=== PATIENT | female | born 1945 | race Caucasian/White ===

== ENCOUNTER 2017-01-28 15:22 | Emergency (ER) | payer MEDICARE ==
[2017-01-28] MEDS ORDERED: HYDROcod/ACETAM 5/325 MG TABLET PO STA (15:56)
[2017-01-28] MEDS ORDERED: HYDROcod/ACETAM 5/325 MG TABLET ONE (16:24)
== END 2017-01-28 17:46 | disposition home or self-care (01) ==
DX: S32.10XA Unspecified fracture of sacrum, initial encounter for closed fracture (principal); W01.10XA Fall on same level from slipping, tripping and stumbling with subsequent striking against unspecified object, initial encounter; I10 Essential (primary) hypertension; J45.909 Unspecified asthma, uncomplicated; E11.9 Type 2 diabetes mellitus without complications; E03.9 Hypothyroidism, unspecified; Z79.82 Long term (current) use of aspirin

== ENCOUNTER 2018-01-08 12:28 | Emergency (ER) | payer MEDICARE ==
[2018-01-08] MEDS ORDERED: HYDROcod/ACETAM 5/325 MG TABLET PO STA (12:48)
--- NOTE | 2018-01-08 12:52 | ED Physician Documentation ---
History of Present Illness - Stated complaint Stated Complaint: LEFT RIB PX/GLF - Chief complaint Chief Complaint: General - History obtained from History obtained from: Patient, Family () - History of Present Illness Timing: Other (3 days ago she had a trip and fall at home hitting her left lateral low chest wall on the edge of the counter and has persistent pain there. She is not more short of breath than normal. 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 denies: Palpitations Respiratory: denies: Dyspnea, Cough GI: denies: Abdominal Pain PD PAST MEDICAL HISTORY - Past Medical History Past Medical History: Yes Cardiovascular: Hypertension Respiratory: Asthma Endocrine/Autoimmune: Type 2 diabetes, HyPOthyroidism : None - Past Surgical History Past Surgical History: Yes - Present Medications Home Medications: Ambulatory Orders Medication Instructions Recorded Confirmed Albuterol Sulfate [Proair 03/01/16 Respiclick] Aspirin [Aspir-Low] 03/01/16 Azithromycin 250 mg PO DAILY 03/01/16 01/28/17 Ferrous Sulfate [Iron Supplement] 03/01/16 Fluticasone [Flonase] 03/01/16 Levothyroxine Sodium 75 mcg PO DAILY 03/01/16 01/28/17 Metoprolol Tartrate 100 mg PO BID 03/01/16 01/28/17 Multivitamin [Multivitamins] 03/01/16 Simvastatin 20 mg PO DAILY 03/01/16 01/28/17 Sulfamethoxazole/Trimethoprim 1 tab PO DAILY 03/01/16 01/28/17 [Bactrim Ds Tablet] Tacrolimus 3 mg PO BID 03/01/16 01/28/17 Trazodone HCl 03/01/16 Venlafaxine HCl [Venlafaxine HCl 150 mg PO DAILY 03/01/16 01/28/17 ER] predniSONE [Deltasone] 5 mg PO DAILY 03/01/16 01/28/17 amLODIPine [Norvasc] 01/28/17 HYDROcod/ACETAM 5/325 [Omena 5/325] 1 - 2 ea PO Q6H PRN #20 tablet 01/08/18 Rivastigmine [Exelon] 1.5 mg PO BID 01/08/18 01/08/18 Venlafaxine ER [Effexor ER] 37.5 mg PO DAILY 01/08/18 01/08/18 - Allergies Allergies/Adverse Reactions: Allergies Allergy/AdvReac Type Severity Reaction Status Date / Time No Known Drug Allergies Allergy Verified 01/08/18 12:38 - Social History Does the pt smoke?: No Smoking Status: Never smoker - Immunizations Immunizations are current?: Yes PD ED PE NORMAL - Vitals Vital signs reviewed: Yes - General General: Alert and oriented X 3, No acute distress - Neck Neck: Supple, no meningeal sign, No bony TTP - Cardiac Cardiac: RRR, No murmur - Respiratory Respiratory: No respiratory distress, Clear bilaterally, Other (She is focally tender over about rib 10 or 11 left side, mid axillary line. There is no abdominal or left upper quadrant tenderness.) - Back Back: No spinal TTP - Neuro Neuro: Alert and oriented X 3, Normal speech - Psych Psych: Normal mood, Normal affect Results - Vitals Vitals: Vital Signs - 24 hr 01/08/18 12:35 Temperature 36.4 C L Heart Rate 89 Respiratory 18 Rate Blood Pressure 127/68 O2 Saturation 100 Oxygen O2 Source Room air - Rads (name of study) L ribs Radiology: EMP read contemporaneously (1. No definite rib fracture or acute osseous abnormality. 2. Postoperative changes. 3. Mild bilateral costophrenic angle blunting. 4. Mild focal nodularity at the left lung base. Comparison with prior exams is recommended to confirm stability) Departure - Departure Disposition: 01 Home, Self Care Clinical Impression: H/O immunosuppressive therapy Fall from slip, trip, or stumble Qualifiers: Encounter type: initial encounter Qualified Code(s): W01.0XXA - Fall on same level from slipping, tripping and stumbling without subsequent striking against object, initial encounter Contusion of left chest wall Qualifiers: Encounter type: initial encounter Qualified Code(s): S20.212A - Contusion of left front wall of thorax, initial encounter Condition: Good Record reviewed to determine appropriate education?: Yes Instructions: ED Contusion Rib Prescriptions: HYDROcod/ACETAM 5/325 [Omena 5/325] 1 - 2 ea PO Q6H PRN #20 tablet PRN Reason: Pain Comments: Use her incentive spirometer frequently as discussed. Return if worse or if new symptoms develop. Follow-up with your doctor with the copy of your x-rays on CD. The x-ray read was as followed: 1. No definite rib fracture or acute osseous abnormality. 2. Postoperative changes. 3. Mild bilateral costophrenic angle blunting. 4. Mild focal nodularity at the left lung base. Comparison with prior exams is recommended to assess the stability. In the absence of such, CT imaging could be performed for further evaluation. Do not drink or drive while taking narcotic pain medication. Note that many narcotic pain relievers also contain Tylenol/acetaminophen. Please ensure that your total dose of acetaminophen from all sources does not exceed 3 g (3000 mg) per day. You may get constipated while on this medication. Take a stool softener such as Colace twice a day while you are on it. Also add an [id number] laxative such as senna or MiraLAX on any day that you do not have a bowel movement. If you received a narcotic pain medication or sedative while in the emergency department, do not drive for the next 24 hours.
--- NOTE | 2018-01-08 13:19 | XRAY Report ---
EXAM: LEFT RIB RADIOGRAPHY EXAM DATE: 01/08/2018 01:00 PM. CLINICAL HISTORY: L low lateral rib inj, hx lung xplant. Fell onto her posterior left ribs 4 days ago . History of bilateral lung transplant 3 years ago. COMPARISON: None. TECHNIQUE: 1 view of the chest and 2 views of the ribs. FINDINGS: Bones: No displaced or definite rib fractures or other definite acute osseous abnormalities. Lungs: Bilateral hilar postoperative changes consistent with the history of bilateral lung transplant . Mild bilateral costophrenic angle blunting. Mild nodularity at the left lung base. No pneumothorax. Mediastinum: Heart and mediastinal contours are unremarkable. Other: None. IMPRESSION: 1. No definite rib fracture or acute osseous abnormality. 2. Postoperative changes. 3. Mild bilateral costophrenic angle blunting. 4. Mild focal nodularity at the left lung base. Comparison with prior exams is recommended to assess the stability. In the absence of such, CT imaging could be performed for further evaluation. [facility] Referring Provider Line: [phone] SITE ID: [id number]
[2018-01-08 14:04] VITALS: BP 138/80
== END 2018-01-08 14:04 | disposition home or self-care (01) ==
LOC: ED 12:28
DX: S20.212A Contusion of left front wall of thorax, initial encounter (principal); W18.39XA Other fall on same level, initial encounter; I10 Essential (primary) hypertension; E11.9 Type 2 diabetes mellitus without complications; E03.9 Hypothyroidism, unspecified; J45.909 Unspecified asthma, uncomplicated; Z79.82 Long term (current) use of aspirin; Z79.899 Other long term (current) drug therapy
CPT/HCPCS: 71101; 99283; A9270